=== PATIENT | female | born 1975 | race Caucasian/White ===

== ENCOUNTER → 2016-09-04 | Outpatient (CLI) | payer MEDICAID, OTHER ==
--- NOTE | 2016-09-04 16:14 | REP ---
BILATERAL MAMMOGRAM WITH DIAGNOSTIC MAMMOGRAM LEFT BREAST AND LEFT BREAST ULTRASOUND: Bilateral mammograph is performed in the MLO and CC projections. There are no prior studies for comparison. Reportedly the patient has a palpable abnormality in the region of 12 o'clock left breast. The area is marked on the skin with a triangular marker. There is a family history of breast cancer in mother at age 42. Breast parenchyma is moderately dense bilaterally. This limits the sensitivity of the mammogram. No definite mass is seen and there is no definite architectural distortion. No clustered microcalcifications are seen. Real-time sonographic evaluation of the left breast is performed in the region of 12 o'clock at the site of the reported palpable abnormality. An oval hypoechoic nodular area is seen measuring 1.6 x 0.8 x 1.1 cm. This could represent a complex cyst or solid nodule. There is no definite internal color flow with Doppler color evaluation. IMPRESSION: ACR 4 suspicious. No mammographic abnormality is seen. Sonographically at the site of the reported palpable abnormality at 12 o'clock left breast is an oval hypoechoic nodule 1.6 x 0.8 x 1.1 cm. This could represent a complex cyst or solid nodule. Recommend ultrasound guided sampling. Also consider MRI of the breasts given the dense breast parenchyma and family history. B-RADS/ACR category 4 mammogram. Suspicious abnormality - biopsy should be considered. Usually requires biopsy. This mammogram was interpreted with the aid of an FDA-approved computer-aided detection system. The patient states she had a clinical breast exam in 08/2016. The patient letter being requested is M4. Signed by Virgil Raya MD 09/04/2016 08:12 P
== END ==
LOC: M RAD 14:15
PROVIDERS: ATTEND Physician Assistant Medical
DX: N63 Unspecified lump in breast (principal); Z80.3 Family history of malignant neoplasm of breast
CPT/HCPCS: 76642; G0204